=== PATIENT | female | born 1970 | race Caucasian/White ===

== ENCOUNTER → 2016-09-01 | Outpatient (CLI) | payer OTHER | END | disposition home or self-care (01) | LOC: LABWHC1 16:02 | PROVIDERS: ATTEND Nurse Practitioner | DX: F31.2 Bipolar disorder, current episode manic severe with psychotic features (principal); F31.5 Bipolar disorder, current episode depressed, severe, with psychotic features | CPT/HCPCS: 36415; 80183 ==

== ENCOUNTER 2016-11-06 23:55 | Observation (INO) | payer OTHER ==
[2016-11-07] MEDS ORDERED: NITROGLYCERIN OINT 1 INCH/GM PACKET TOPICAL STA (00:22)
[2016-11-07] MEDS ORDERED: FUROSEMIDE 10 MG/ML 4 ML VIAL IV STA (00:26)
--- NOTE | 2016-11-07 00:30 | ED ---
General Adult HPI - General Source: patient, RN notes reviewed Mode of arrival: wheelchair Limitations: no limitations <Enrique Landaverde - Last Filed: 11/07/16 00:27> <Joe Colon - Last Filed: 11/07/16 03:58> - General Chief complaint: Chest Pain Stated complaint: Chest Pain/Leg Swelling Time Seen by Provider: 11/07/16 00:05 - History of Present Illness Initial comments: This is a 46-year-old female who presents to emergency department complaining of chest pain or shortness of breath since noon. Patient states the pain radiates around to her back. Patient states the pain in her chest is a whirling sensation. Patient denies any diaphoresis. Patient denies any nausea. Patient states he has had an increase in edema to both legs. Patient denies any calf pain. Patient denies any lightheadedness or dizziness. Patient denies any patient denies numbness weakness. Patient denies any fever chills or cough. (Enrique Landaverde) - Related Data Home Medications Medication Instructions Recorded Confirmed Butalb/Acetaminophen/Caffeine 1 cap PO 11/07/16 [Esgic 50-325-40 Capsule] Furosemide [Lasix] 20 mg PO DAILY 11/07/16 11/07/16 Naproxen 500 mg PO 11/07/16 OXcarbazepine [Trileptal] 300 mg PO BID 11/07/16 11/07/16 Sertraline [Zoloft] 50 mg PO DAILY 11/07/16 11/07/16 risperiDONE [RisperDAL] 1 mg PO DAILY 11/07/16 11/07/16 traMADol HCL [Ultram] 11/07/16 Allergies Allergy/AdvReac Type Severity Reaction Status Date / Time aspirin Allergy Vomiting Verified 11/07/16 00:06 clarithromycin [From Biaxin] Allergy Vomiting Verified 11/07/16 00:06 Penicillins Allergy Dyspnea Verified 11/07/16 00:06 Review of Systems ROS Other: All systems not noted in ROS Statement are negative. <Enrique Landaverde - Last Filed: 11/07/16 00:27> ROS Other: All systems not noted in ROS Statement are negative. <Joe Colon - Last Filed: 11/07/16 03:58> ROS Statement: Those systems with pertinent positive or pertinent negative responses have been documented in the HPI. Past Medical History Past Medical History: Hypertension Additional Past Medical History / Comment(s): chronic back pain, leg edema, scoliosis History of Any Multi-Drug Resistant Organisms: None Reported Past Surgical History: Orthopedic Surgery Additional Past Surgical History / Comment(s): knee sx Past Psychological History: Anxiety Smoking Status: Current every day smoker Past Alcohol Use History: Rare Past Drug Use History: None Reported <Enrique Landaverde - Last Filed: 11/07/16 00:27> General Exam Limitations: no limitations <Enrique Landaverde - Last Filed: 11/07/16 00:27> <Joe Colon - Last Filed: 11/07/16 03:58> - General Exam Comments Initial Comments: GENERAL: Patient is well-developed and well-nourished. Patient is nontoxic and well- hydrated and is in mild distress. ENT: Neck is soft and supple. No significant lymphadenopathy is noted. Oropharynx is clear. Moist mucous membranes. Neck has full range of motion without eliciting any pain. EYES: The sclera were anicteric and conjunctiva were pink and moist. Extraocular movements were intact and pupils were equal round and reactive to light. Eyelids were unremarkable. PULMONARY: Unlabored respirations. Good breath sounds bilaterally. No audible rales rhonchi or wheezing was noted. CARDIOVASCULAR: There is a regular rate and rhythm without any murmurs gallops or rubs. ABDOMEN: Soft and nontender with normal bowel sounds. No palpable organomegaly was noted. There is no palpable pulsatile mass. SKIN: Skin is clear with no lesions or rashes and otherwise unremarkable. NEUROLOGIC: Patient is alert and oriented x3. Cranial nerves II through XII are grossly intact. Motor and sensory are also intact. Normal speech, volume and content. Symmetrical smile. MUSCULOSKELETAL: Normal extremities with adequate strength and full range of motion. 1+ edema bilaterally LYMPHATICS: No significant lymphadenopathy is noted PSYCHIATRIC: Normal psychiatric evaluation. Normal interpersonal interactions appears functionally intact in deals appropriately with others. No signs of depression. No signs of anxiety. (Enrique Landaverde) Medical Decision Making <Enrique Landaverde - Last Filed: 11/07/16 00:27> - Lab Data Result diagrams: 11/07/16 00:30 11/07/16 00:30 <Joe Colon - Last Filed: 11/07/16 03:58> - Medical Decision Making EKG shows a sinus bradycardia 55 bpm [place] interval is 148 QRS is 90 QT intervals 452 QTC is 432 patient's EKG shows no ST segment elevation or depression or T- wave abdomen is noted. Dr. Diaz taking over the care of this patient at 1 AM. (Enrique Landaverde) - Lab Data Lab Results 11/07/16 11/07/16 11/07/16 Range/Units 00:30 00:30 00:30 WBC 6.0 (3.8-10.6) k/uL RBC 4.27 (3.80-5.40) m/uL Hgb 12.8 (11.4-16.0) gm/dL Hct 38.6 (34.0-46.0) % MCV 90.5 (80.0-100.0) fL MCH 30.1 (25.0-35.0) pg MCHC 33.2 (31.0-37.0) g/dL RDW 13.5 (11.5-15.5) % Plt Count 202 (150-450) k/uL Neutrophils % 48 % Lymphocytes % 41 % Monocytes % 5 % Eosinophils % 3 % Basophils % 1 % Neutrophils # 2.9 (1.3-7.7) k/uL Lymphocytes # 2.5 (1.0-4.8) k/uL Monocytes # 0.3 (0-1.0) k/uL Eosinophils # 0.2 (0-0.7) k/uL Basophils # 0.1 (0-0.2) k/uL PT (9.0-12.0) sec INR (<1.1) APTT (22.0-30.0) sec Sodium 124 L (137-145) mmol/L Potassium 3.7 (3.5-5.1) mmol/L Chloride 91 L (98-107) mmol/L Carbon Dioxide 25 (22-30) mmol/L Anion Gap 8 mmol/L BUN 10 (7-17) mg/dL Creatinine 0.60 (0.52-1.04) mg/dL Est GFR (MDRD) Af Amer >60 (>60 ml/min/1.73 sqM) Est GFR (MDRD) Non-Af >60 (>60 ml/min/1.73 sqM) Glucose 103 H (74-99) mg/dL Calcium 8.6 (8.4-10.2) mg/dL Magnesium 1.7 (1.6-2.3) mg/dL Total Bilirubin 0.3 (0.2-1.3) mg/dL AST 22 (14-36) U/L ALT 32 (9-52) U/L Alkaline Phosphatase 77 (38-126) U/L Total Creatine Kinase 196 H (30-135) U/L CK-MB (CK-2) 5.4 H* (0.0-2.4) ng/mL CK-MB (CK-2) Rel Index 2.8 Troponin I <0.012 (0.000-0.034) ng/mL NT-Pro-B Natriuret Pep pg/mL Total Protein 6.0 L (6.3-8.2) g/dL Albumin 3.8 (3.5-5.0) g/dL 11/07/16 11/07/16 Range/Units 00:30 00:30 WBC (3.8-10.6) k/uL RBC (3.80-5.40) m/uL Hgb (11.4-16.0) gm/dL Hct (34.0-46.0) % MCV (80.0-100.0) fL MCH (25.0-35.0) pg MCHC (31.0-37.0) g/dL RDW (11.5-15.5) % Plt Count (150-450) k/uL Neutrophils % % Lymphocytes % % Monocytes % % Eosinophils % % Basophils % % Neutrophils # (1.3-7.7) k/uL Lymphocytes # (1.0-4.8) k/uL Monocytes # (0-1.0) k/uL Eosinophils # (0-0.7) k/uL Basophils # (0-0.2) k/uL PT 10.2 (9.0-12.0) sec INR 1.0 (<1.1) APTT 25.0 (22.0-30.0) sec Sodium (137-145) mmol/L Potassium (3.5-5.1) mmol/L Chloride (98-107) mmol/L Carbon Dioxide (22-30) mmol/L Anion Gap mmol/L BUN (7-17) mg/dL Creatinine (0.52-1.04) mg/dL Est GFR (MDRD) Af Amer (>60 ml/min/1.73 sqM) Est GFR (MDRD) Non-Af (>60 ml/min/1.73 sqM) Glucose (74-99) mg/dL Calcium (8.4-10.2) mg/dL Magnesium (1.6-2.3) mg/dL Total Bilirubin (0.2-1.3) mg/dL AST (14-36) U/L ALT (9-52) U/L Alkaline Phosphatase (38-126) U/L Total Creatine Kinase (30-135) U/L CK-MB (CK-2) (0.0-2.4) ng/mL CK-MB (CK-2) Rel Index Troponin I (0.000-0.034) ng/mL NT-Pro-B Natriuret Pep 292 pg/mL Total Protein (6.3-8.2) g/dL Albumin (3.5-5.0) g/dL Disposition <Enrique Landaverde - Last Filed: 11/07/16 00:27> <Joe Colon - Last Filed: 11/07/16 03:58> Clinical Impression: Hyponatremia Disposition: ADMITTED IP TO THIS HOSP Condition: Fair Referrals: Don Singh MD [Primary Care Provider] - 1-2 days
[2016-11-07 00:46] LABS: Basophils # (A) 0.1 k/uL (0-0.2); Basophils % (A) 1 %; CH 31.6; Eosinophils # (A) 0.2 k/uL (0-0.7); Eosinophils % (A) 3 %; HCT 38.6 % (34.0-46.0); HDW 2.22; HGB 12.8 gm/dL (11.4-16.0); Luc # (Auto) 0.14; Luc % (Auto) 2; Lymphocytes # (A) 2.5 k/uL (1.0-4.8); Lymphocytes % (A) 41 %; MCH 30.1 pg (25.0-35.0); MCHC 33.2 g/dL (31.0-37.0); MCV 90.5 fL (80.0-100.0); Mean Platelet Volume 8.4; Monocytes # (A) 0.3 k/uL (0-1.0); Monocytes % (A) 5 %; Neutrophils # (A) 2.9 k/uL (1.3-7.7); Neutrophils % (A) 48 %; RBC 4.27 m/uL (3.80-5.40); RDW 13.5 % (11.5-15.5); WBC (Perox) 6.13
[2016-11-07 00:55] LABS: ALT 32 U/L (9-52); AST 22 U/L (14-36); Alkaline Phosphatase 77 U/L (38-126); Anion Gap 8 mmol/L; Blood Urea Nitrogen 10 mg/dL (7-17); Calcium 8.6 mg/dL (8.4-10.2); Carbon Dioxide 25 mmol/L (22-30); Chloride 91 mmol/L (98-107); Glucose 103 mg/dL (74-99); Magnesium 1.7 mg/dL (1.6-2.3); Non-African American GFR(MDRD) >60 (>60 ml/min/1.73 sqM); Potassium 3.7 mmol/L (3.5-5.1); Sodium 124 mmol/L (137-145); Total Bilirubin 0.3 mg/dL (0.2-1.3)
[2016-11-07 01:14] LABS: Creatine Kinase 196 U/L (30-135)
[2016-11-07 01:19] LABS: Prothrombin Time 10.2 sec (9.0-12.0)
[2016-11-07 01:27] LABS: Troponin I <0.012 ng/mL (0.000-0.034)
[2016-11-07 01:34] LABS: Creatine Kinase MB 5.4 ng/mL (0.0-2.4)
--- NOTE | 2016-11-07 01:57 | XR ---
PROCEDURE: FILM CXR 2 VIEWS HISTORY: 46-year-old female with chest pain. COMPARISON: None TECHNIQUE: Frontal and lateral views of the chest were obtained. FINDINGS: Limited by technique. Cardiomediastinal silhouette is within normal limits. No evidence of focal consolidation, pleural effusion, or pneumothorax. Bones are unremarkable for age. IMPRESSION: Unremarkable two-view chest.
[2016-11-07] MEDS ORDERED: NALOXONE 0.4 MG/ML 1 ML VIAL IV PRN (03:37)
[2016-11-07] MEDS ORDERED: ACETAMINOPHEN TAB 325 MG TAB PO PRN (03:37)
[2016-11-07] MEDS ORDERED: traMADol 50 MG TAB PO PRN (03:47)
[2016-11-07] MEDS ORDERED: ACETAMINOPHEN PO SCH (04:00)
[2016-11-07] MEDS ORDERED: BUTALB PO SCH (04:00)
[2016-11-07] MEDS ORDERED: CAFFEINE PO SCH (04:00)
[2016-11-07] MEDS: SODIUM CHLORIDE 0.9% 1,000 ML IV SCH ×2 (05:00→14:11)
[2016-11-07] MEDS ORDERED: CAFFEINE PO PRN (05:09)
[2016-11-07] MEDS ORDERED: ACETAMINOPHEN PO PRN (05:09)
[2016-11-07] MEDS ORDERED: BUTALB PO PRN (05:09)
[2016-11-07 07:36] VITALS: BMI 23.6
[2016-11-07 07:58] VITALS: BP 113/56; PULSE 55; RESP 16; TEMP 97.7
[2016-11-07] MEDS ORDERED: OXcarbazepine 300 MG TAB PO SCH (09:00)
[2016-11-07] MEDS ORDERED: SERTRALINE 50 MG TAB PO SCH (09:00)
[2016-11-07] MEDS ORDERED: risperiDONE 1 MG TAB PO SCH (09:00)
[2016-11-07] MEDS ORDERED: FAMOTIDINE 20 MG TAB PO SCH (09:00)
[2016-11-07 12:20] LABS: Anion Gap 10 mmol/L; Blood Urea Nitrogen 9 mg/dL (7-17); Calcium 8.4 mg/dL (8.4-10.2); Carbon Dioxide 22 mmol/L (22-30); Chloride 93 mmol/L (98-107); Glucose 106 mg/dL (74-99); Non-African American GFR(MDRD) >60 (>60 ml/min/1.73 sqM); Potassium 3.8 mmol/L (3.5-5.1); Sodium 125 mmol/L (137-145)
--- NOTE | 2016-11-07 15:47 | HP ---
DATE OF ADMISSION: A 46-year-old female came into emergency department with complaints of nonspecific chest pain on and off, sharp in nature. Appears to be associated with anxiety and chest pain radiates around her back. Troponins are negative. EKGs negative. Patient's chest pain is nonpleuritic in nature. Patient attributes the chest pain to her leg pain. Whenever she has leg pain she gets anxious and she starts having this pain. Patient is also on naproxen. Although it is not related to food, it appears gastroesophageal reflux appears to be contributing to that pain. The patient does not have any family history of premature coronary artery disease. Patient was ruled out acute coronary syndrome, so will need a stress test regarding that. Patient was subsequently admitted here because of hyponatremia and patient is on Lasix and patient is taking Lasix for bilateral lower limb edema. That led hyponatremia. Unfortunately she got IV Lasix as well from ER. The patient was given IV fluids. I am expecting her hyponatremia to improve and if her hyponatremia improved patient will be discharged today. Patient will need an outpatient stress test and patient will be given Prilosec as well and patient will follow with Dr. Singh as outpatient. REVIEW OF SYSTEMS: CONSTITUTIONAL: No fever, no malaise, no fatigue. HEENT: No recent visual problems or hearing problems. Denied any sore throat. CARDIOVASCULAR: As described HPI. PULMONARY: No shortness of breath, no cough, no hemoptysis. GASTROINTESTINAL: No diarrhea, no nausea, no vomiting, no abdominal pain. Normoactive bowel sounds. NEUROLOGICAL: No headaches, no weakness, no numbness. HEMATOLOGICAL: Denies any bleeding or petechiae. GENITOURINARY: Denies any burning micturition, frequency, or urgency. MUSCULOSKELETAL/RHEUMATOLOGICAL: Denies any joint pain, swelling, or any muscle pain. ENDOCRINE: Denies any polyuria or polydipsia. The rest of the 14 point review of systems is negative. Patient denied any significant shortness of breath, orthopnea, PND, cough. PAST MEDICAL HISTORY: Significant for hypertension, depression, anxiety. The patient does smoke a half pack per day. Denied any alcohol abuse or any drug abuse. FAMILY HISTORY: As described in HPI. PHYSICAL EXAMINATION: Temperature 97.7, pulse 65, respiratory rate of 16, blood pressure is 130/56, saturating at 96% on room air. GENERAL: The patient is alert and oriented x3, not in any acute distress. Well developed, well nourished. HEENT: Pupils are round and equally reacting to light. EOMI. No scleral icterus. No conjunctival pallor. Normocephalic, atraumatic. No pharyngeal erythema. No thyromegaly. CARDIOVASCULAR: S1 and S2 present. No murmurs, rubs, or gallops. PULMONARY: Chest is clear to auscultation, no wheezing or crackles. ABDOMEN: Soft, nontender, nondistended, normoactive bowel sounds. No palpable organomegaly. MUSCULOSKELETAL: No joint swelling or deformity. EXTREMITIES: No cyanosis, clubbing, or pedal edema. NEUROLOGICAL: Gross neurological examination did not reveal any focal deficits. SKIN: No rashes. LABORATORY DATA: CBC, CMP are abnormal for low sodium 124. Chest x-ray did not show any pneumonic infiltrate. ASSESSMENT AND PLAN: 1. Chest pain, ruled out acute coronary syndrome, related to either anxiety disorder or gastroesophageal disease. Management as mentioned above. 2. Hypertension. 3. Hyponatremia related to her Lasix, which will be discontinued and patient will be asked to use compression socks for that. 4. Depression, anxiety disorder. Patient is already on antidepressants at this point of time. Further management as outpatient. The patient will be discharged after Doppler of the bilateral lower extremities if it is negative and if patient's sodium is greater than 130, patient will be discharged. Will discontinue Lasix upon discharge and patient will be followed by Dr. Singh in 3 to 7 days and patient will need outpatient stress test. Discharge diet is regular. Activity as tolerated. This dictation is both H&P and discharge summary.
--- NOTE | 2016-11-07 16:44 | US ---
EXAMINATION TYPE: US venous doppler duplex LE BI DATE OF EXAM: 11/07/2016 3:12 PM COMPARISON: NONE CLINICAL HISTORY: R/O DVT. Pain and edema bilateral legs SIDE PERFORMED: Bilateral TECHNIQUE: The lower extremity deep venous system is examined utilizing real time linear array sonog ravinder with graded compression, doppler sonography and color-flow sonography. VESSELS IMAGED: External Iliac Vein (EIV) Common Femoral Vein Deep Femoral Vein Greater Saphenous Vein * Femoral Vein Popliteal Vein Small Saphenous Vein * Proximal Calf Veins (* superficial vessels) Right Leg: No evidence of DVT Left Leg: No evidence of DVT No popliteal fossa lesion is seen. IMPRESSION: THIS EXAMINATION IS NEGATIVE FOR DVT WITHIN BOTH LEGS.
== END 2016-11-07 14:15 | disposition home or self-care (01) ==
LOC: EC 23:55 → 5MS5E 11-07 03:46 → INTOOBSV 11-07 03:46
PROVIDERS: ADMIT Hospitalist; ATTEND Hospitalist
DX: E87.1 Hypo-osmolality and hyponatremia (principal); R07.9 Chest pain, unspecified; I10 Essential (primary) hypertension; M41.9 Scoliosis, unspecified; F32.9 Major depressive disorder, single episode, unspecified; F41.9 Anxiety disorder, unspecified; K21.9 Gastro-esophageal reflux disease without esophagitis; F17.200 Nicotine dependence, unspecified, uncomplicated; G89.29 Other chronic pain; M54.9 Dorsalgia, unspecified; Z88.6 Allergy status to analgesic agent; Z88.0 Allergy status to penicillin; Z88.8 Allergy status to other drugs, medicaments and biological substances; Z79.899 Other long term (current) drug therapy; F45.42 Pain disorder with related psychological factors
CPT/HCPCS: 96374; 99285; 36415; 93005; 83880; 80053; 80048; 82550; 82553; 83735; 84484; 85025; 85610; 85730; 71020; 93970; G0378; J1940

== ENCOUNTER → 2017-01-01 | Outpatient (CLI) | payer OTHER | END | disposition home or self-care (01) | LOC: LABWHC1 15:42 | PROVIDERS: ATTEND Internal Medicine | DX: E87.1 Hypo-osmolality and hyponatremia (principal) | CPT/HCPCS: 83935; 84300 ==

== ENCOUNTER 2017-01-11 19:22 | Emergency (ER) | payer OTHER ==
[2017-01-11] MEDS ORDERED: PROPARACAINE 0.5% OPHTH DROPS 15 ML BTL LEFT EYE STA (20:50)
--- NOTE | 2017-01-11 21:14 | ED ---
Eye Problem HPI - General Chief complaint: Eye Problems Stated complaint: Eye Problem Time Seen by Provider: 01/11/17 20:29 Source: patient Mode of arrival: ambulatory Limitations: no limitations - History of Present Illness Initial comments: 38-year-old female patient presented to emergency department today for complaints of left eye pain, drainage, and swelling. Patient states that about one week ago she began to have some eye discomfort and drainage from the eye. Patient states that over the next few days it became more swollen. She did see her primary care physician 4 days ago was given a prescription for sulfacetamide for conjunctivitis and azithromycin for sinusitis. Patient states that she has been taking both antibiotics as directed and her symptoms seem to be worsening. Patient states that a couple days after her doctor's appointment she did develop some red bumps on her forehead, she states that they were itchy, states that they have turned into scabbed lesions. She states this all has developed over her lower eyelid as well. Patient states she does have pain with eye movement. States she does have headache with this. She reports blurred vision. She denies any fever, chills, ear pain, dizziness, weakness, or any other physical concerns. - Related Data Home Medications Medication Instructions Recorded Confirmed Butalb/Acetaminophen/Caffeine 1 cap PO Q6H PRN 11/07/16 01/11/17 [Esgic 50-325-40 Capsule] LORazepam [Ativan] 0.5 mg PO DAILY PRN 11/07/16 01/11/17 Naproxen 500 mg PO BID PRN 11/07/16 01/11/17 Sertraline [Zoloft] 50 mg PO DAILY 11/07/16 01/11/17 risperiDONE [RisperDAL] 1 mg PO HS 11/07/16 01/11/17 traMADol HCL [Ultram] 50 mg PO TID PRN 11/07/16 01/11/17 Previous Rx's Medication Instructions Recorded valACYclovir [Valtrex] 500 mg PO BID #20 tab 01/11/17 Allergies Allergy/AdvReac Type Severity Reaction Status Date / Time aspirin Allergy Vomiting Verified 01/11/17 20:42 clarithromycin [From Biaxin] Allergy Vomiting Verified 01/11/17 20:42 omeprazole Allergy Unknown Verified 01/11/17 20:42 Penicillins Allergy Dyspnea Verified 01/11/17 20:42 Review of Systems ROS Statement: Those systems with pertinent positive or pertinent negative responses have been documented in the HPI. ROS Other: All systems not noted in ROS Statement are negative. Past Medical History Past Medical History: Hypertension Additional Past Medical History / Comment(s): chronic back pain, leg edema, scoliosis, anxiety depression History of Any Multi-Drug Resistant Organisms: None Reported Past Surgical History: Orthopedic Surgery Additional Past Surgical History / Comment(s): knee sx Past Anesthesia/Blood Transfusion Reactions: No Reported Reaction Past Psychological History: Anxiety, Depression Smoking Status: Current every day smoker Past Alcohol Use History: None Reported Past Drug Use History: None Reported General Exam Limitations: no limitations General appearance: alert, in no apparent distress Eye exam: Present: normal appearance, PERRL, EOMI, periorbital swelling ( Periorbital swelling extending down over the left maxillary area. Left lower lid is edematous, does exhibit two small scabbed lesions near the inner canthus. Patient also exhibits 3 scabbed lesions over the medial forehead. There is green drainage noted from the left eye. ), other (Eye was prepped with proparacaine. Fluorescein stain with Wood's lamp examination to the left eye shows no evidence of corneal abrasion, dendritic lesions, or laceration.). Absent: scleral icterus, conjunctival injection, periorbital tenderness Pupils: Present: normal accommodation ENT exam: Present: normal exam, normal oropharynx, mucous membranes moist, TM's normal bilaterally Neck exam: Present: normal inspection. Absent: tenderness, meningismus, lymphadenopathy Respiratory exam: Present: normal lung sounds bilaterally. Absent: respiratory distress, wheezes, rales, rhonchi, stridor Cardiovascular Exam: Present: regular rate, normal rhythm, normal heart sounds. Absent: systolic murmur, diastolic murmur, rubs, gallop, clicks Neurological exam: Present: alert, oriented X3, CN II-XII intact Psychiatric exam: Present: normal affect, normal mood Skin exam: Present: warm, dry, intact, normal color. Absent: rash Course Vital Signs 01/11/17 01/11/17 19:52 21:25 Temperature 98.6 F 97.9 F Pulse Rate 65 64 Respiratory 17 16 Rate Blood Pressure 133/72 143/79 O2 Sat by Pulse 99 98 Oximetry Medical Decision Making - Medical Decision Making 38-year-old male patient presented for evaluation of left eye discomfort and swelling. Patient has been instilling sulfacetamide drops without relief of symptoms. Fluorescein stain with Wood's lamp examination was performed and showed no abrasion, laceration, or dendritic lesions. My attending Dr. Tee was in to evaluate the eye as well and is concerned for herpes simplex infection. He did speak to Dr. Gómez the community health nurse supervisor who agreed to see patient in the office tomorrow. He recommended to start patient on Valtrex. Patient will be given a prescription for this as well as follow up information with Dr. Gómez. She was also instructed to follow up with her primary care physician for recheck in 1-2 days. Instructed to return here immediately for any new, worsening, or concerning symptoms. Patient verbalizes understanding and agrees with this plan. Disposition Clinical Impression: Ocular herpes simplex Disposition: HOME SELF-CARE Condition: Good Instructions: Eye Pain (ED) Additional Instructions: Continue azithromycin for sinusitis. Call Dr. Gómez's office tomorrow for an appointment. Complete the Valtrex prescription in full. Return to the emergency department immediately for any new, worsening, or concerning symptoms. Prescriptions: valACYclovir [Valtrex] 500 mg PO BID #20 tab Referrals: Don Singh MD [Primary Care Provider] - 1-2 days Michele Gómez MD [STAFF PHYSICIAN] - 1-2 days Time of Disposition: 21:18
[2017-01-11 21:27] VITALS: BP 143/79; PULSE 64; RESP 16; TEMP 97.9
== END 2017-01-11 21:25 | disposition home or self-care (01) ==
LOC: EC 19:22
DX: B00.50 Herpesviral ocular disease, unspecified (principal); L98.9 Disorder of the skin and subcutaneous tissue, unspecified; H53.8 Other visual disturbances; R51 Headache; F32.9 Major depressive disorder, single episode, unspecified; F41.9 Anxiety disorder, unspecified; F17.200 Nicotine dependence, unspecified, uncomplicated; Z79.899 Other long term (current) drug therapy; Z88.0 Allergy status to penicillin; Z88.1 Allergy status to other antibiotic agents; Z88.6 Allergy status to analgesic agent; Z88.8 Allergy status to other drugs, medicaments and biological substances
CPT/HCPCS: 99283

== ENCOUNTER → 2017-03-01 | Outpatient (CLI) | payer OTHER ==
--- NOTE | 2017-03-01 21:11 | MR ---
EXAMINATION TYPE: MR brain wo DATE OF EXAM: 03/01/2017 COMPARISON: 08/28/2011 HISTORY: Neck pain, migraine T1-weighted sagittal, T2, FLAIR, and diffusion axial, and T2 coronal coronal views of the brain are s ubmitted. There is no evidence of acute ischemia. The ventricles, basal cisterns, and sulci overlying the conv exities are consistent with the patient's age. There is no mass effect. Craniocervical junction maintained. Sella turcica has a normal appearance. No cerebellopontine angle mass. Changes of chronic sinusitis noted. Abnormal signal involving the yuridia stable suggestive of previous ischemia or demyelination. There is a cyst within the posterior nasopharynx. WHITE MATTER: There is diffuse confluent and numerous bilateral focal areas of abnormal signal throughout the white matter totaling greater than 50. Sagittal imaging suggestive evidence of callosal lesion. IMPRESSION: 1. Progression of diffuse and extensive white matter changes. Differential diagnosis would include de myelinating disease such as MS. Other etiologies including remote microvascular ischemia, vasculitis, sarcoidosis, Lyme's disease, hypertension or migraine headaches in the differential diagnosis. EXAMINATION TYPE: MR cervical spine wo DATE OF EXAM: 03/01/2017 COMPARISON: NONE HISTORY: Neck pain, migraine TECHNIQUE: T1 sagittal and coronal, T2 sagittal, and gradient echo axial views of the cervical spine are submitted. FINDINGS: The cranial cervical junction is preserved. There is no abnormal signal seen within the sp inal cord or paraspinal soft tissues. At C2-3 there is mild uncovertebral joint hypertrophy on the left. No disc herniation or canal stenos is. No foraminal encroachment greater At C3-4 there is bilateral uncovertebral joint hypertrophy greater on the left with left-sided facet arthropathy and mild left foraminal encroachment. No disc herniation or canal stenosis. At C4-5 there is bilateral facet arthropathy and mild uncovertebral joint hypertrophy with mild bilat eral foraminal encroachment. No disc herniation or canal stenosis. At C5-6 there is mild facet arthropathy. No foraminal encroachment, disc herniation or canal stenosis . Minimal uncovertebral joint hypertrophy bilaterally. At C6-7 there is focal broad-based central disc herniation slightly greater paracentrally the right. Abuts the anterior margin the spinal cord. Mild bilateral foraminal encroachment. At C7-T1 there is no disc herniation or canal stenosis. No foraminal encroachment. Multiple thyroid nodules are incidentally noted. IMPRESSION: 1. Multilevel cervical spondylosis with multilevel foraminal encroachment as discussed above. 2. Broad-based central disc herniation C6-C7 which abuts the anterior margin the spinal cord slightly greater paracentrally the right. 3. Multiple thyroid nodules.
--- NOTE | 2017-03-01 21:15 | MR ---
EXAMINATION TYPE: MR lumbar spine wo con DATE OF EXAM: 03/01/2017 COMPARISON: NONE HISTORY: low back pain TECHNIQUE: T1 and T2 axial and sagittal images of the lumbar spine are submitted. FINDINGS: There is no abnormal signal seen within the visualized spinal cord or paraspinal soft tissu es. Degenerative disc disease L2-3, L3-4, and L4-L5. At L1-2 there is no disc herniation, canal stenosis, or foraminal encroachment. At L2-3 there is mild degenerative disc disease. There is mild facet arthropathy with no foraminal en croachment or canal stenosis. No disc herniation. At L3-4 there is broad-based central disc protrusion with mild effacement of thecal sac. Facet arthro evangelist and ligament flavum hypertrophy contribute to borderline canal stenosis. At L4-5 there is annular tear with focal small central disc herniation resulting in moderate compress ion of thecal sac. Facet arthropathy and ligamentum flavum hypertrophy contribute to mild canal steno sis. Neural foramina remain patent. At L5-S1 there is no disc herniation or canal stenosis. No foraminal encroachment. There is facet art hropathy. IMPRESSION: 1. Annular tear and broad-based disc herniations L3-L4 and L4-L5. Hypertrophic change of the facets a nd ligamentum flavum at these levels contribute to borderline to mild canal stenosis. 2 multilevel fa cet arthropathy and degenerative disc disease.
== END | disposition home or self-care (01) ==
LOC: RADMRIMAIN 19:25
PROVIDERS: ATTEND Physician Assistant
DX: M48.061 Spinal stenosis, lumbar region without neurogenic claudication (principal); M51.26 Other intervertebral disc displacement, lumbar region; M50.223 Other cervical disc displacement at C6-C7 level; M51.36 Other intervertebral disc degeneration, lumbar region; M47.812 Spondylosis without myelopathy or radiculopathy, cervical region; M46.96 Unspecified inflammatory spondylopathy, lumbar region; M24.28 Disorder of ligament, vertebrae; R90.89 Other abnormal findings on diagnostic imaging of central nervous system; R51 Headache; R42 Dizziness and giddiness; M79.1 Myalgia; F33.9 Major depressive disorder, recurrent, unspecified; M25.561 Pain in right knee; M13.862 Other specified arthritis, left knee; G56.02 Carpal tunnel syndrome, left upper limb; Z72.0 Tobacco use
CPT/HCPCS: 70551; 72141; 72148

== ENCOUNTER → 2017-06-14 | Outpatient (CLI) | payer OTHER ==
--- NOTE | 2017-06-14 21:44 | US ---
EXAMINATION TYPE: US carotid duplex BILAT DATE OF EXAM: 06/14/2017 COMPARISON: NONE CLINICAL HISTORY: I63.9 stroke, R42 dizziness. Dizziness, stroke EXAM MEASUREMENTS: RIGHT: Peak Systolic Velocity (PSV) cm/sec ----- Right CCA: 91.7 ----- Right ICA: 130.1 ----- Right ECA: 116.4 ICA/CCA ratio: 1.4 RIGHT: End Diastole cm/sec ----- Right CCA: 34.9 ----- Right ICA: 50.3 ----- Right ECA: 16.0 LEFT: Peak Systolic Velocity (PSV) cm/sec ----- Left CCA: 107.7 ----- Left ICA: 117.8 ----- Left ECA: 99.5 ICA/CCA ratio: 1.1 LEFT: End Diastole cm/sec ----- Left CCA: 38.2 ----- Left ICA: 44.5 ----- Left ECA: 19.2 VERTEBRALS (direction of flow): Right Vertebral: Antegrade Left Vertebral: Antegrade Rhythm: Normal Elevated right internal carotid artery velocity in the range of 50-69%. The ratio suggests this may b e slightly lower. Right thyroid: 1.5 x 0.8 x 1.2cm nodule IMPRESSION: 1. Elevation of the right internal carotid artery velocity compatible with a moderate 50-69% stenosis . 2. Incidental note is made of a right thyroid lobe nodule. Consider ultrasound of the thyroid for add itional evaluation. Criteria for Assigning % of Stenosis / Diameter reduction (Estimation based on the indirect measurements of the internal carotid artery velocities (ICA PSV). 1. Normal (no stenosis)=ICA PSV < 125 cm/s: ratio < 2.0: ICA EDV<40 cm/s. 2. Less than 50% stenosis=ICA PSV < 125 cm/s: ratio < 2.0: ICA EDV<40 cm/s. 3. 50 to 69% stenosis=ICA PSV of 125 to 230 cm/s: ratio 2.0 ? 4.0: ICA EDV 40-100 cm/s. 4. Greater than 70% stenosis to near occlusion= ICA PSV > 230 cm/s: ratio > 4.0: ICA EDV > 100 cm/s. 5. Near occlusion= ICA PSV velocities may be low or undetectable: variable ratio and ICA EDV. 6. Total occlusion=unable to detect flow.
== END | disposition home or self-care (01) ==
LOC: RADUSWWP 14:50
PROVIDERS: ATTEND Psychiatry & Neurology Neurology
DX: R93.1 Abnormal findings on diagnostic imaging of heart and coronary circulation (principal); R42 Dizziness and giddiness
CPT/HCPCS: 93880

== ENCOUNTER → 2017-07-10 | Outpatient (CLI) | payer OTHER ==
[2017-07-10 10:42] LABS: Cholesterol 148 mg/dL (<200); HDL Cholesterol 54 mg/dL (40-60); LDL Cholesterol,Calculated 74 mg/dL (0-99); Triglycerides 99 mg/dL (<150)
--- NOTE | 2017-07-10 10:52 | US ---
EXAMINATION TYPE: US thyroid st tissue head/neck DATE OF EXAM: 07/10/2017 COMPARISON: NONE CLINICAL HISTORY: 46-year-old female E04.1 Thyroid Nodule. Right side nodule visualized on carotid ul trasound TECHNIQUE: Multiple sonographic images of the thyroid gland are obtained. FINDINGS: GLAND SIZE: Right Lobe: 5.2 x 1.8 x 1.8 cm Overall Parenchyma: homogenous Left Lobe: 5.2 x 1.3 x 1.9 cm Overall Parenchyma: homogeneous Isthmus Thickness: 0.3 cm NODULES RIGHT: # of nodules measured on right: 2 1. 1.9 X 0.7 x 1.2 cm hypoechoic solid nodule at the lower pole with well-defined margins; . This nodule is wider than tall and shows intranodular vascularity. Prior size: No previous 2. 6 x 5 x 5 mm hypoechoic mixed nodule at the lower pole with well-defined margins; . This nodule i s wider than tall and shows intranodular vascularity. Prior size: No previous LEFT: # of nodules measured on left: 2 1. 0.8 X 0.5 x 0.8 cm hypoechoic solid nodule at the mid pole with well-defined margins; . This no dule is wider than tall and shows intranodular vascularity. Prior size: No previous 2. 0.9 X 0.4 x 0.8 cm hypoechoic solid nodule at the upper pole with well-defined margins; . This n odule is wider than tall and shows intranodular vascularity. Prior size: No previous ISTHMUS: # of nodules measured in the isthmus: 0 Bilateral neck scanned, no evidence of lymphadenopathy. IMPRESSION: 1. Mild thyromegaly. 2. Two nodules in each lobe. Dominant nodule is on the right measuring 1.9 cm. Other nodules measure 9 mm or smaller. FNA can be considered of the dominant nodule.
== END | disposition home or self-care (01) ==
LOC: RADUSWWP 09:32
PROVIDERS: ATTEND Psychiatry & Neurology Neurology
DX: E01.0 Iodine-deficiency related diffuse (endemic) goiter (principal); E04.2 Nontoxic multinodular goiter; I63.9 Cerebral infarction, unspecified
CPT/HCPCS: 36415; 76536; 80061; 83090

== ENCOUNTER → 2017-08-27 | Outpatient (CLI) | payer OTHER ==
--- NOTE | 2017-08-27 14:53 | US ---
EXAMINATION TYPE: US thyroid st tissue head/neck DATE OF EXAM: 08/27/2017 COMPARISON: 07/10/2017 CLINICAL HISTORY: R22.0 Localized swelling, mass and lump, head. f/u exam GLAND SIZE: Right Lobe: 5.0 x 1.7 x 2.1 cm Overall Parenchyma: homogenous Left Lobe: 5.5 x 2.1 x 1.5 cm Overall Parenchyma: homogeneous Isthmus Thickness: 0.4 cm NODULES RIGHT: # of nodules measured on right: 3 1. 1.4 X 1.3 x 0.7 cm hypoechoic solid nodule at the mid pole with well-defined margins. This nodu le is wider than tall and shows intranodular vascularity. Prior size: 1.9 x 1.2 x 0.7 cm - previous tech combined #1 and #2 lesion measurements together 2. 0.7 X 0.5 x 0.4 cm hypoechoic solid nodule at the mid pole with well-defined margins. This nodul e is wider than tall and shows intranodular vascularity. Prior size: as stated under nodule #1 3. 0.7 X 0.6 x 0.6 cm hypoechoic solid nodule at the lower pole with well-defined margins. This nod ule is wider than tall and shows intranodular vascularity. Prior size: 0.6 x 0.5 x 0.6 cm LEFT: # of nodules measured on left: 2 1. 0.9 X 1.0 x 0.4 cm hypoechoic solid nodule at the mid pole with well-defined margins. This nodu le is wider than tall and shows intranodular vascularity. Prior size: 0.8 x 0.8 x 0.5 cm 2. 1.0 X 0.7 x 0.4 cm hypoechoic solid nodule at the mid pole with well-defined margins. This nodul e is wider than tall and shows intranodular vascularity. Prior size: 0.9 x 0.8 x 0.4 cm ISTHMUS: # of nodules measured in the isthmus: 0 Bilateral neck scanned, no evidence of lymphadenopathy. IMPRESSION: Nonspecific thyroid nodularity as outlined above.
== END | disposition home or self-care (01) ==
LOC: RADUSWWP 13:37
PROVIDERS: ATTEND Internal Medicine
DX: E04.1 Nontoxic single thyroid nodule (principal); Z88.0 Allergy status to penicillin; Z88.6 Allergy status to analgesic agent; Z88.8 Allergy status to other drugs, medicaments and biological substances
CPT/HCPCS: 76536

== ENCOUNTER → 2017-11-02 | Outpatient (CLI) | payer OTHER ==
--- NOTE | 2017-11-02 18:21 | ECHOF ---
Referral Reason:R60.0 Localized edema, I10 Hypertension MEASUREMENTS -------- HEIGHT: 137.2 cm WEIGHT: 67.1 kg BP: IVSd: 0.8 cm (0.6 - 1.1) LVIDd: 4.3 cm (3.9 - 5.3) LVPWd: 0.9 cm (0.6 - 1.1) IVSs: 1.1 cm LVIDs: 3.0 cm LVPWs: 1.3 cm LA Diam: 2.4 cm (2.7 - 3.8) Ao Diam: 2.4 cm (2.0 - 3.7) AV Cusp: 1.6 cm (1.5 - 2.6) LA Diam: 3.0 cm (2.7 - 3.8) MV EXCURSION: 12.408 mm (> 18.000) MV EF SLOPE: 60 mm/s (70 - 150) EPSS: 0.4 cm MV E Merrick: 0.77 m/s MV DecT: 186 ms MV A Merrick: 0.71 m/s MV E/A Ratio: 1.08 RAP: 5.00 mmHg RVSP: 12.43 mmHg FINDINGS -------- Sinus rhythm. This was a technically adequate study. LV size, wall thickness and systolic function are normal, with an EF greater than 55%. The left leonardo tricular size is normal. The right ventricle is normal in size. The left atrial size is normal. The right atrial size is normal. The aortic valve is trileaflet, and appears structurally normal. No aortic stenosis or regurgitation. Mild mitral annular calcification present. Mild mitral regurgitation is present. Mild tricuspid regurgitation present. There is no evidence of pulmonary hypertension. The right v entricular systolic pressure, as measured by Doppler, is 12.43mmHg. There is no pulmonic regurgitation present. The aortic root size is normal. There is no pericardial effusion. CONCLUSIONS -------- 1. LV size, wall thickness and systolic function are normal, with an EF greater than 55%. 2. The left ventricular size is normal. 3. The right ventricle is normal in size. 4. The left atrial size is normal. 5. The right atrial size is normal. 6. The aortic valve is trileaflet, and appears structurally normal. No aortic stenosis or regurgitati on. 7. Mild mitral annular calcification present. 8. Mild mitral regurgitation is present. 9. Mild tricuspid regurgitation present. 10. There is no evidence of pulmonary hypertension. 11. The right ventricular systolic pressure, as measured by Doppler, is 12.43mmHg. 12. There is no pulmonic regurgitation present. 13. The aortic root size is normal. 14. There is no pericardial effusion. BAND MACHINE OPERATOR: Halley Ellison RDCS
== END | disposition home or self-care (01) ==
LOC: RADECHMAIN 11:33
PROVIDERS: ATTEND Internal Medicine
DX: I08.1 Rheumatic disorders of both mitral and tricuspid valves (principal); I10 Essential (primary) hypertension; Z88.0 Allergy status to penicillin; Z88.6 Allergy status to analgesic agent
CPT/HCPCS: 93306

== ENCOUNTER → 2019-05-05 | Outpatient (CLI) | payer OTHER ==
--- NOTE | 2019-05-05 10:24 | MM ---
Reason for exam: screening (asymptomatic). Baseline mammogram. History: Patient is postmenopausal and is nulliparous. Physical Findings: Nurse did not find any significant physical abnormalities on exam. MG 3D Screening Mammo W/Cad Bilateral CC and MLO view(s) were taken. The breast tissue is heterogeneously dense. This may lower the sensitivity of mammography. No suspicious abnormality. These results were verbally communicated with the patient and result sheet given to the patient on 05/05/19. ASSESSMENT: Negative, BI-RAD 1 RECOMMENDATION: Routine screening mammogram of both breasts in 1 year.
== END | disposition home or self-care (01) ==
LOC: RADMAMWWP 07:06
PROVIDERS: ATTEND Internal Medicine
DX: Z12.31 Encounter for screening mammogram for malignant neoplasm of breast (principal)
CPT/HCPCS: 77063; 77067

== ENCOUNTER 2019-06-06 08:49 | Day surgery (SDC) | payer OTHER ==
[2019-06-04 11:07] VITALS: BMI 25.4
[~2019-06-06 08:49] MED LIST: LACTATED RINGERS 1,000 ML IV SCH; LIDOCAINE 1% (10MG/ML) FOR IV START INTRADERMA PRN
[2019-06-06 09:04] VITALS: TEMP 97.3
[2019-06-06] MEDS ORDERED: MIDAZOLAM 2 MG/2 ML VIAL ONE (09:17)
[2019-06-06] MEDS ORDERED: PROPOFOL 10 MG/ML 20 ML VIAL IV ONE (09:17)
[2019-06-06] MEDS ORDERED: fentaNYL (PF) 50 MCG/ML 2 ML AMP ONE (09:17)
--- NOTE | 2019-06-06 09:23 | P.GSHP ---
History of Present Illness H&P Date: 06/06/19 Chief Complaint: Colon cancer screening Patient here today for colonoscopy. She has not had one previously. No family history of colon cancer. No bowel related complaints. In the distant past she had rectal bleeding while on blood thinners. Past Medical History Past Medical History: CVA/TIA, Hyperlipidemia, Hypertension, Memory Impairment Additional Past Medical History / Comment(s): chronic back pain, leg edema, scoliosis, CVA 2018 [employer] History of Any Multi-Drug Resistant Organisms: None Reported Past Surgical History: Cholecystectomy, Orthopedic Surgery Additional Past Surgical History / Comment(s): LT knee sx, Past Anesthesia/Blood Transfusion Reactions: No Reported Reaction Past Psychological History: Anxiety, Depression Smoking Status: Current every day smoker Past Alcohol Use History: Rare Additional Past Alcohol Use History / Comment(s): SMOKES 1 -2 PPD- SINCE AGE 8 Past Drug Use History: Marijuana Additional Drug Use History / Comment(s): USES MARIJUANA DAILY-INFORMED TO REFRAIN FROM USE FOR AT LEAST 24 HOURS PRIOR TO PROCEDURE - Past Family History Mother Family Medical History: No Reported History Medications and Allergies Home Medications Medication Instructions Recorded Confirmed Type Butalb/Acetaminophen/Caffeine 1 cap PO Q6H PRN 11/07/16 06/04/19 History [Esgic 50-325-40 Capsule] LORazepam [Ativan] 0.5 mg PO HS PRN 11/07/16 06/04/19 History Naproxen 500 mg PO BID PRN 11/07/16 06/04/19 History risperiDONE [RisperDAL] 2 mg PO HS 11/07/16 06/04/19 History Atorvastatin [Lipitor] 20 mg PO DAILY 06/04/19 06/04/19 History Khddxitkmzryhz-PG-Gjfhfewxdi 1 tab PO DAILY 06/04/19 06/04/19 History [Folbic] HYDROcodone/APAP 7.5-325MG [[place] 1 tab PO BID 06/04/19 06/04/19 History 7.5-325] Montelukast [Singulair] 10 mg PO DAILY 06/04/19 06/04/19 History Multivit/Folic Acid/Vit K1 1 each PO DAILY 06/04/19 06/04/19 History [One-A-Day Women's 50 Plus Tab] Propranolol HCl [Propranolol HCl 60 mg PO DAILY 06/04/19 06/04/19 History ER] Sertraline [Zoloft] 100 mg PO DAILY 06/04/19 06/04/19 History Venlafaxine HCl [Effexor XR] 37.5 mg PO DAILY 06/04/19 06/04/19 History risperiDONE 1 mg PO QAM 06/04/19 06/04/19 History Allergies Allergy/AdvReac Type Severity Reaction Status Date / Time aspirin Allergy Vomiting Verified 06/04/19 10:57 clarithromycin [From Biaxin] Allergy Vomiting Verified 06/04/19 10:57 omeprazole Allergy Nausea Verified 06/04/19 10:57 Penicillins Allergy Dyspnea Verified 06/04/19 10:57 Surgical - Exam Vital Signs Temp Pulse Resp BP Pulse Ox 97.3 F L 75 18 122/71 97 06/06/19 09:00 06/06/19 09:00 06/06/19 09:00 06/06/19 09:00 06/06/19 09:00 Physical exam: General: Well-developed, well-nourished HEENT: Normocephalic, sclerae nonicteric Abdomen: Nontender, nondistended Extremities: No edema Neuro: Alert and oriented Assessment and Plan (1) Colon cancer screening Narrative/Plan: Will proceed with colonoscopy Current Visit: Yes Status: Acute Code(s): Z12.11 - ENCOUNTER FOR SCREENING FOR MALIGNANT NEOPLASM OF COLON SNOMED Code(s): 504432206
[2019-06-06 09:42] VITALS: RESP 16
--- NOTE | 2019-06-06 09:44 | P.PCN ---
Date of Procedure: 06/06/19 Procedure(s) Performed: PREOPERATIVE DIAGNOSIS: Colon cancer screening POSTOPERATIVE DIAGNOSIS: Small hemorrhoids PROCEDURE: Colonoscopy ANESTHESIA: MAC SURGEON: Sujit Tello M.D. SPECIMENS: None ENDOSCOPIC PROCEDURE: The patient was placed on the endoscopy table in the left decubitus position. The Olympus colonoscope was inserted into the anus and passed under direct visualization to the base of the cecum. The appendiceal orifice was visualized. From that point the scope was slowly withdrawn in specting all surfaces carefully. There were no neoplastic inflammatory or polypoid lesions throughout the cecum, ascending, transverse, descending, sigmoid and rectum. There was no visible diverticulosis noted. Digital rectal examination was normal. The patient was taken to the recovery room in stable condition per anesthesia guidelines. RECOMMENDATIONS: Increase fiber. Follow-up colonoscopy 10 years.
[2019-06-06 09:55] VITALS: BP 132/84; PULSE 82
== END 2019-06-06 10:22 | disposition home or self-care (01) ==
LOC: ORWHC2ENDO 08:49
PROVIDERS: ATTEND Surgery
DX: Z12.11 Encounter for screening for malignant neoplasm of colon (principal); K64.9 Unspecified hemorrhoids; I10 Essential (primary) hypertension; E78.5 Hyperlipidemia, unspecified; I69.311 Memory deficit following cerebral infarction; G89.29 Other chronic pain; M54.9 Dorsalgia, unspecified; R60.0 Localized edema; M41.9 Scoliosis, unspecified; Z90.49 Acquired absence of other specified parts of digestive tract; F41.9 Anxiety disorder, unspecified; F32.9 Major depressive disorder, single episode, unspecified; F17.210 Nicotine dependence, cigarettes, uncomplicated; Z79.891 Long term (current) use of opiate analgesic; Z79.899 Other long term (current) drug therapy; Z88.1 Allergy status to other antibiotic agents; Z88.0 Allergy status to penicillin; Z88.8 Allergy status to other drugs, medicaments and biological substances; Z88.6 Allergy status to analgesic agent
CPT/HCPCS: G0121; J2250; J3010; J2704; 45378

== ENCOUNTER 2020-08-20 13:39 | Emergency (ER) | payer OTHER ==
[2020-08-20 14:21] VITALS: BP 142/71; PULSE 53; RESP 16; TEMP 98
--- NOTE | 2020-08-20 15:03 | ED ---
Recheck HPI - General Chief Complaint: Recheck/Abnormal Lab/Rx Stated Complaint: +COVID,Sent by pcp for BAM Time Seen by Provider: 08/20/20 14:51 Source: patient Limitations: no limitations - History of Present Illness Initial Comments: Patient is a 49-year-old female presenting to the emergency department after being sent in by PCP for possible covid antibody treatment. Patient tested positive for Covid today, along with her , and PCP sent in. She is currently asymptomatic, she'll he got tested secondary to her being exposed to at work. She denies history of asthma or COPD, she does have MS. She has no fevers or chills, no chest pain or short of breath, no cough. She has no further complaints. Upon arrival to the ER her vitals are stable. - Related Data Home Medications Medication Instructions Recorded Confirmed Butalb/Acetaminophen/Caffeine 1 cap PO Q6H PRN 11/07/16 06/04/19 [Esgic 50-325-40 Capsule] LORazepam [Ativan] 0.5 mg PO HS PRN 11/07/16 06/04/19 Naproxen 500 mg PO BID PRN 11/07/16 06/04/19 risperiDONE [RisperDAL] 2 mg PO HS 11/07/16 06/04/19 Atorvastatin [Lipitor] 20 mg PO DAILY 06/04/19 06/04/19 Frwjvcdjloetbu-HO-Xeoonarnmv 1 tab PO DAILY 06/04/19 06/04/19 [Folbic] HYDROcodone/APAP 7.5-325MG [[place] 1 tab PO BID 06/04/19 06/04/19 7.5-325] Montelukast [Singulair] 10 mg PO DAILY 06/04/19 06/04/19 Multivit/Folic Acid/Vit K1 1 each PO DAILY 06/04/19 06/04/19 [One-A-Day Women's 50 Plus Tab] Propranolol HCl [Propranolol HCl 60 mg PO DAILY 06/04/19 06/04/19 ER] Sertraline [Zoloft] 100 mg PO DAILY 06/04/19 06/04/19 Venlafaxine HCl [Effexor XR] 37.5 mg PO DAILY 06/04/19 06/04/19 risperiDONE 1 mg PO QAM 06/04/19 06/04/19 Allergies Allergy/AdvReac Type Severity Reaction Status Date / Time aspirin Allergy Vomiting Verified 08/20/20 14:16 clarithromycin [From Biaxin] Allergy Vomiting Verified 08/20/20 14:16 omeprazole Allergy Nausea Verified 08/20/20 14:16 Penicillins Allergy Dyspnea Verified 08/20/20 14:16 Review of Systems ROS Statement: Those systems with pertinent positive or pertinent negative responses have been documented in the HPI. ROS Other: All systems not noted in ROS Statement are negative. Past Medical History Past Medical History: Hypertension Additional Past Medical History / Comment(s): chronic back pain, leg edema, scoliosis, anxiety depression History of Any Multi-Drug Resistant Organisms: None Reported Past Surgical History: Orthopedic Surgery Additional Past Surgical History / Comment(s): knee sx Past Anesthesia/Blood Transfusion Reactions: No Reported Reaction Past Psychological History: Anxiety, Depression Past Alcohol Use History: None Reported Past Drug Use History: None Reported - Past Family History Mother Family Medical History: No Reported History General Exam - General Exam Comments Initial Comments: GENERAL: Patient is well-developed and well-nourished. Patient is nontoxic and in no acute distress. HEAD: Atraumatic, normocephalic. EYES: Pupils equal round and reactive to light, extraocular movements intact, sclera anicteric, conjunctiva are normal. Eyelids were unremarkable. ENT: TMs normal, nares patent, oropharynx clear without exudates. Moist mucous membranes. NECK: Normal range of motion, supple without lymphadenopathy or JVD. LUNGS: Unlabored respirations. Breath sounds clear to auscultation bilaterally and equal. No wheezes rales or rhonchi. HEART: Regular rate and rhythm without murmurs, rubs or gallops. ABDOMEN: Soft, nontender, normoactive bowel sounds. No guarding, no rebound. No masses appreciated. : Deferred MUSCULOSKELETAL: Normal extremities with adequate strength and normal range of motion, no pitting or edema. No clubbing or cyanosis. NEUROLOGICAL: Patient is alert and oriented x 3. Motor and sensory are also intact. Cranial nerves II through XII grossly intact. Symmetrical smile. Normal speech, normal gait. PSYCH: Normal mood, normal affect. SKIN: Warm, Dry, normal turgor, no rashes or lesions noted. Limitations: no limitations Course Vital Signs 08/20/20 14:16 Temperature 98 F Pulse Rate 53 L Respiratory 16 Rate Blood Pressure 142/71 O2 Sat by Pulse 100 Oximetry Medical Decision Making - Medical Decision Making Patient is a 49-year-old female history of MS, presenting after testing positive for Covid today. She was tested due to her been exposed at work. She is asymptomatic, her exam is unremarkable. She does not qualify for Covid antiviral treatment. She can follow-up with her PCP. She stable for discharge. Case discussed with Dr. Landaverde. Disposition Clinical Impression: COVID-19 Disposition: HOME SELF-CARE Condition: Stable Instructions (If sedation given, give patient instructions): Coronavirus Dis ease 2019 (COVID-19) Additional Instructions: Please return to the Emergency Department if symptoms worsen or any other concerns. Positive Covid test May take Tylenol or Motrin for body aches, headaches. Is patient prescribed a controlled substance at d/c from ED?: No Referrals: Juanis Garvey MD [Primary Care Provider] - 1-2 days
== END 2020-08-20 15:12 | disposition home or self-care (01) ==
LOC: EC 13:39
DX: U07.1 COVID-19 (principal); I10 Essential (primary) hypertension; F41.9 Anxiety disorder, unspecified; F32.9 Major depressive disorder, single episode, unspecified; Z79.899 Other long term (current) drug therapy; Z88.0 Allergy status to penicillin
CPT/HCPCS: 99283

== ENCOUNTER → 2020-10-12 | Outpatient (CLI) | payer OTHER ==
[2020-10-12 22:59] LABS: Basophils # (A) 0.05 X 10*3/uL (0.00-0.10); Basophils % (A) 0.8 %; Eosinophils # (A) 0.24 X 10*3/uL (0.04-0.35); Eosinophils % (A) 3.6 %; HCT 38.8 % (37.2-46.3); HGB 12.6 g/dL (12.0-15.0); Lymphocytes # (A) 2.12 X 10*3/uL (0.90-5.00); MCH 29.9 pg (27.0-32.0); MCHC 32.5 g/dL (32.0-37.0); MCV 91.9 fL (80.0-97.0); Mean Platelet Volume 12.8 fL (9.5-12.2); Monocytes # (A) 0.41 X 10*3/uL (0.20-1.00); Monocytes % (A) 6.2 %; Neutrophils # (A) 3.78 X 10*3/uL (1.80-7.70); Neutrophils % (A) 57.1 %; Platelet Count 175 X 10*3/uL (140-440); RBC 4.22 X 10*6/uL (4.10-5.20); WBC 6.62 X 10*3/uL (4.50-10.00)
[2020-10-13 13:40] LABS: African American GFR (CKD) 98.9 (60.0-200.0); Albumin 4.1 g/dL (3.80-4.90); Albumin/Globulin Ratio 2.16 (1.60-3.17); Anion Gap 10.2 mmol/L (4.00-12.00); BUN/Creat Ratio 8.75 Ratio (12.00-20.00); Calcium 8.8 mg/dL (8.7-10.3); Carbon Dioxide 25.8 mmol/L (21.6-31.8); Globulin 1.9 g/dL (1.6-3.3); Non-African American GFR(CKD) 85.4 (60.0-200.0); Potassium 4.8 mmol/L (3.5-5.5); Total Bilirubin 0.3 mg/dL (0.2-1.2)
== END | disposition home or self-care (01) ==
LOC: LABWHC1 14:47
PROVIDERS: ATTEND Physician Assistant
DX: G35 Multiple sclerosis (principal)
CPT/HCPCS: 36415; 80053; 82306; 85025

== ENCOUNTER → 2021-03-08 | Outpatient (CLI) | payer OTHER ==
--- NOTE | 2021-03-09 08:47 | MM ---
Reason for exam: screening (asymptomatic). Last mammogram was performed 1 year and 10 months ago. History: Patient is postmenopausal and is nulliparous. Physical Findings: A clinical breast exam by your physician is recommended on an annual basis and results should be correlated with mammographic findings. MG 3D Screening Mammo W/Cad Bilateral CC and MLO view(s) were taken. Prior study comparison: May 05, 2019, bilateral MG 3d screening mammo w/cad. The breast tissue is heterogeneously dense. This may lower the sensitivity of mammography. There is no discrete abnormality. No significant changes when compared with prior studies. ASSESSMENT: Negative, BI-RAD 1 RECOMMENDATION: Routine screening mammogram of both breasts in 1 year.
== END | disposition home or self-care (01) ==
LOC: RADMAMWWP 10:57
PROVIDERS: ATTEND Internal Medicine
DX: Z12.31 Encounter for screening mammogram for malignant neoplasm of breast (principal)
CPT/HCPCS: 77063; 77067

== ENCOUNTER 2022-08-08 22:33 | Emergency (ER) | payer OTHER ==
[2022-08-08 22:45] VITALS: BP 94/73; RESP 18; TEMP 98.4
[2022-08-08] MEDS ORDERED: SODIUM CHLORIDE 0.9% 1,000 ML IV STA (23:23)
[2022-08-08 23:42] LABS: Basophils # (A) 0.1 k/uL (0-0.2); Basophils % (A) 1 %; Eosinophils # (A) 0.1 k/uL (0-0.7); Eosinophils % (A) 1 %; HCT 43.6 % (34.0-46.0); HGB 14.5 gm/dL (11.4-16.0); Lymphocytes # (A) 2.9 k/uL (1.0-4.8); Lymphocytes % (A) 39 %; MCH 30.1 pg (25.0-35.0); MCHC 33.3 g/dL (31.0-37.0); MCV 90.2 fL (80.0-100.0); Mean Platelet Volume 9.5; Monocytes # (A) 0.2 k/uL (0-1.0); Monocytes % (A) 3 %; Neutrophils % (A) 54 %; Platelet Count 236 k/uL (150-450); RBC 4.84 m/uL (3.80-5.40); WBC 7.4 k/uL (3.8-10.6)
--- NOTE | 2022-08-08 23:44 | ED ---
General Adult HPI - General Chief complaint: Syncope Stated complaint: Syncope Time Seen by Provider: 08/08/22 23:00 Source: patient, EMS, RN notes reviewed Mode of arrival: EMS Limitations: no limitations - History of Present Illness Initial comments: This 71-year-old female presents emergency Department chief complaint syncopal episode. Patient states she was at her house sharp and very hot flushed feeling and states that she passed out. States that family members called EMS. Patient does admit that she is methamphetamines earlier today. Patient reportedly received Narcan neurologist. Patient denies opiate abuse. Denies chest pain palpitations shortness breath headache dizziness states she's had a normal baseline at this time. - Related Data Home Medications Medication Instructions Recorded Confirmed Butalb/Acetaminophen/Caffeine 1 cap PO Q6H PRN 11/07/16 06/04/19 [Esgic 50-325-40 Capsule] LORazepam [Ativan] 0.5 mg PO HS PRN 11/07/16 06/04/19 Naproxen 500 mg PO BID PRN 11/07/16 06/04/19 risperiDONE [RisperDAL] 2 mg PO HS 11/07/16 06/04/19 Atorvastatin [Lipitor] 20 mg PO DAILY 06/04/19 06/04/19 Chvdmrmkcyhiqv-AN-Pmkiadvxgg 1 tab PO DAILY 06/04/19 06/04/19 [Folbic] HYDROcodone/APAP 7.5-325MG [[place] 1 tab PO BID 06/04/19 06/04/19 7.5-325] Montelukast [Singulair] 10 mg PO DAILY 06/04/19 06/04/19 Multivit/Folic Acid/Vit K1 1 each PO DAILY 06/04/19 06/04/19 [One-A-Day Women's 50 Plus Tab] Propranolol HCl [Propranolol HCl 60 mg PO DAILY 06/04/19 06/04/19 ER] Sertraline [Zoloft] 100 mg PO DAILY 06/04/19 06/04/19 Venlafaxine HCl [Effexor XR] 37.5 mg PO DAILY 06/04/19 06/04/19 risperiDONE 1 mg PO QAM 06/04/19 06/04/19 Allergies Allergy/AdvReac Type Severity Reaction Status Date / Time aspirin Allergy Vomiting Verified 08/08/22 22:45 clarithromycin [From Biaxin] Allergy Vomiting Verified 08/08/22 22:45 omeprazole Allergy Nausea Verified 08/08/22 22:45 Penicillins Allergy Dyspnea Verified 08/08/22 22:45 Review of Systems ROS Statement: Those systems with pertinent positive or pertinent negative responses have been documented in the HPI. ROS Other: All systems not noted in ROS Statement are negative. Past Medical History Past Medical History: Hypertension Additional Past Medical History / Comment(s): chronic back pain, leg edema, scoliosis, anxiety depression History of Any Multi-Drug Resistant Organisms: None Reported Past Surgical History: Orthopedic Surgery Additional Past Surgical History / Comment(s): knee sx Past Anesthesia/Blood Transfusion Reactions: No Reported Reaction Past Psychological History: Anxiety, Depression Past Alcohol Use History: None Reported Past Drug Use History: None Reported - Past Family History Mother Family Medical History: No Reported History General Exam Limitations: no limitations General appearance: alert, in no apparent distress Head exam: Present: atraumatic, normocephalic, normal inspection Eye exam: Present: normal appearance, PERRL, EOMI. Absent: scleral icterus, conjunctival injection, periorbital swelling ENT exam: Present: normal exam, normal oropharynx, mucous membranes moist Neck exam: Present: normal inspection, full ROM. Absent: tenderness, meningismus, lymphadenopathy Respiratory exam: Present: normal lung sounds bilaterally. Absent: respiratory distress, wheezes, rales, rhonchi, stridor Cardiovascular Exam: Present: normal rhythm, tachycardia, normal heart sounds. Absent: systolic murmur, diastolic murmur, rubs, gallop, clicks GI/Abdominal exam: Present: soft, normal bowel sounds. Absent: distended, tenderness, guarding, rebound, rigid Neurological exam: Present: alert, oriented X3, CN II-XII intact, reflexes normal. Absent: motor sensory deficit Course Vital Signs 08/08/22 08/09/22 22:43 00:47 Temperature 98.4 F Pulse Rate 113 H 85 Respiratory 18 Rate Blood Pressure 94/73 O2 Sat by Pulse 100 Oximetry EKG Findings - EKG Comments: EKG Findings:: EKG performed at 22:39 sinus tachycardia rate of 107 AL 135 QRS 80 QT / QTC 347/410 - EKG Results: EKG: interpreted by [facility] Medical Decision Making - Medical Decision Making Was pt. sent in by a medical professional or institution (KEELEY Bass, EXTERIOR DOOR INSTALLER, urgent care, hospital, or group home...) When possible be specific @ -No Did you speak to anyone other than the patient for history (EMS, parent, family, police, friend...)? What history was obtained from this source @ -No Did you review nursing and triage notes (agree or disagree)? Why? @ -I reviewed and agree with nursing and triage notes Were old charts reviewed (outside hosp., previous admission, EMS record, old EKG, old radiological studies, urgent care reports/EKG's, group home records)? Report findings @ -No old charts were reviewed Differential Diagnosis (chest pain, altered mental status, abdominal pain women, abdominal pain men, vaginal bleeding, weakness, fever, dyspnea, syncope, headache, dizziness, GI bleed, back pain, seizure, CVA, palpatations, mental health, musculoskeletal)? @ -Differential Syncope: Valvular disease, hypertrophic cardiomyopathy, pulmonary embolism, tamponade, tachycardia, bradycardia, VA, hypovolemia, hemorrhage, dissection, anemia, intracranial hemorrhage, seizure, hypoglycemia, carbon monoxide poisoning, this is not meant to be an all-inclusive list. EKG interpreted by me (3pts min.). @ -As above X-rays interpreted by me (1pt min.). @ -Patient refused CT interpreted by me (1pt min.). @ -None done U/S interpreted by me (1pt. min.). @ -None done What testing was considered but not performed or refused? (CT, X-rays, U/S, labs)? Why? @ -None What meds were considered but not given or refused? Why? @ -None Did you discuss the management of the patient with other professionals (professionals i.e. KEELEY Bass, EXTERIOR DOOR INSTALLER, lab, RT, psych nurse, mental health social worker, exercise equipment specialist, teacher, air antisubmarine officer, pillowcase sewer)? Give summary @ -No Was smoking cessation discussed for >3mins.? @ -No Was critical care preformed (if so, how long)? @ -No Were there social determinants of health that impacted care today? How? (Homelessness, low income, unemployed, alcoholism, drug addiction, tr ansportation, low edu. Level, literacy, decrease access to med. care, [place] [facility], rehab)? @ -No Was there de-escalation of care discussed even if they declined (Discuss DNR or withdrawal of care, Hospice)? DNR status @ -No What co-morbidities impacted this encounter? (DM, HTN, Smoking, COPD, CAD, Cancer, CVA, ARF, Chemo, Hep., AIDS, mental health diagnosis, sleep apnea, morbid obesity)? @ -Drug abuse Was patient admitted / discharged? Hospital course, mention meds given and route, prescriptions, significant lab abnormalities, going to OR and other pertinent info. @ -Discharge patient reportedly had a syncopal episode versus possible drug overdose. Patient is stable has no current complaints. Patient was discharged in stable condition return parameters were discussed. Undiagnosed new problem with uncertain prognosis? @ -No Drug Therapy requiring intensive monitoring for toxicity (Heparin, Nitro, Insul in, Cardizem)? @ -No Were any procedures done? @ -No Diagnosis/symptom? @ -Syncope Acute, or Chronic, or Acute on Chronic? @ -Acute Uncomplicated (without systemic symptoms) or Complicated (systemic symptoms)? @ -Uncomplicated Side effects of treatment? @ -No Exacerbation, Progression, or Severe Exacerbation? @ -No Poses a threat to life or bodily function? How? (Chest pain, [place], VA, pneumonia, PE, COPD, DKA, ARF, appy, cholecystitis, CVA, Diverticulitis, Homicidal, Suicidal, threat to staff... and all critical care pts) @ -No - Lab Data Result diagrams: 08/08/22 22:44 08/08/22 22:44 Lab Results 08/08/22 08/08/22 08/08/22 Range/Units 22:44 22:44 23:33 WBC 7.4 (3.8-10.6) k/uL RBC 4.84 (3.80-5.40) m/uL Hgb 14.5 (11.4-16.0) gm/dL Hct 43.6 (34.0-46.0) % MCV 90.2 (80.0-100.0) fL MCH 30.1 (25.0-35.0) pg MCHC 33.3 (31.0-37.0) g/dL RDW 13.0 (11.5-15.5) % Plt Count 236 (150-450) k/uL MPV 9.5 Neutrophils % 54 % Lymphocytes % 39 % Monocytes % 3 % Eosinophils % 1 % Basophils % 1 % Neutrophils # 4.0 (1.3-7.7) k/uL Lymphocytes # 2.9 (1.0-4.8) k/uL Monocytes # 0.2 (0-1.0) k/uL Eosinophils # 0.1 (0-0.7) k/uL Basophils # 0.1 (0-0.2) k/uL PT 10.9 (9.0-12.0) sec INR 1.0 (<1.2) APTT 18.9 L (22.0-30.0) sec Sodium 137 (137-145) mmol/L Potassium 3.4 L (3.5-5.1) mmol/L Chloride 105 (98-107) mmol/L Carbon Dioxide 22 (22-30) mmol/L Anion Gap 10 mmol/L BUN 16 (7-17) mg/dL Creatinine 0.78 (0.52-1.04) mg/dL Est GFR (CKD-EPI)AfAm >90 (>60 ml/min/1.73 sqM) Est GFR (CKD-EPI)NonAf 87 (>60 ml/min/1.73 sqM) Glucose 167 H (74-99) mg/dL Calcium 8.8 (8.4-10.2) mg/dL Magnesium 1.7 (1.6-2.3) mg/dL Total Bilirubin 0.5 (0.2-1.3) mg/dL AST 26 (14-36) U/L ALT 26 (4-34) U/L Alkaline Phosphatase 79 (38-126) U/L Troponin I (0.000-0.034) ng/mL Total Protein 6.8 (6.3-8.2) g/dL Albumin 4.1 (3.5-5.0) g/dL Urine Opiates Screen (NotDetected) Ur Oxycodone Screen (NotDetected) Urine Methadone Screen (NotDetected) Ur Propoxyphene Screen (NotDetected) Ur Barbiturates Screen (NotDetected) U Tricyclic Antidepress (NotDetected) Ur Phencyclidine Scrn (NotDetected) Ur Amphetamines Screen (NotDetected) U Methamphetamines Scrn (NotDetected) U Benzodiazepines Scrn (NotDetected) Urine Cocaine Screen (NotDetected) U Marijuana (THC) Screen (NotDetected) 08/08/22 08/09/22 Range/Units 23:33 00:49 WBC (3.8-10.6) k/uL RBC (3.80-5.40) m/uL Hgb (11.4-16.0) gm/dL Hct (34.0-46.0) % MCV (80.0-100.0) fL MCH (25.0-35.0) pg MCHC (31.0-37.0) g/dL RDW (11.5-15.5) % Plt Count (150-450) k/uL MPV Neutrophils % % Lymphocytes % % Monocytes % % Eosinophils % % Basophils % % Neutrophils # (1.3-7.7) k/uL Lymphocytes # (1.0-4.8) k/uL Monocytes # (0-1.0) k/uL Eosinophils # (0-0.7) k/uL Basophils # (0-0.2) k/uL PT (9.0-12.0) sec INR (<1.2) APTT (22.0-30.0) sec Sodium (137-145) mmol/L Potassium (3.5-5.1) mmol/L Chloride (98-107) mmol/L Carbon Dioxide (22-30) mmol/L Anion Gap mmol/L BUN (7-17) mg/dL Creatinine (0.52-1.04) mg/dL Est GFR (CKD-EPI)AfAm (>60 ml/min/1.73 sqM) Est GFR (CKD-EPI)NonAf (>60 ml/min/1.73 sqM) Glucose (74-99) mg/dL Calcium (8.4-10.2) mg/dL Magnesium (1.6-2.3) mg/dL Total Bilirubin (0.2-1.3) mg/dL AST (14-36) U/L ALT (4-34) U/L Alkaline Phosphatase (38-126) U/L Troponin I <0.012 (0.000-0.034) ng/mL Total Protein (6.3-8.2) g/dL Albumin (3.5-5.0) g/dL Urine Opiates Screen Not Detected (NotDetected) Ur Oxycodone Screen Not Detected (NotDetected) Urine Methadone Screen Not Detected (NotDetected) Ur Propoxyphene Screen Not Detected (NotDetected) Ur Barbiturates Screen Not Detected (NotDetected) U Tricyclic Antidepress Not Detected (NotDetected) Ur Phencyclidine Scrn Not Detected (NotDetected) Ur Amphetamines Screen Detected H (NotDetected) U Methamphetamines Scrn Detected H (NotDetected) U Benzodiazepines Scrn Not Detected (NotDetected) Urine Cocaine Screen Not Detected (NotDetected) U Marijuana (THC) Screen Detected H (NotDetected) Disposition Clinical Impression: Syncope Disposition: HOME SELF-CARE Condition: Stable Instructions (If sedation given, give patient instructions): Syncope (ED) Additional Instructions: Please return to the Emergency Department if symptoms worsen or any other concerns. Is patient prescribed a controlled substance at d/c from ED?: No Referrals: Gracie Ramos MD [Primary Care Provider] - 1-2 days Time of Disposition: 01:33
[2022-08-08 23:52] LABS: ALT 26 U/L (4-34); AST 26 U/L (14-36); African American GFR (CKD) >90 (>60 ml/min/1.73 sqM); Albumin 4.1 g/dL (3.5-5.0); Alkaline Phosphatase 79 U/L (38-126); Anion Gap 10 mmol/L; Blood Urea Nitrogen 16 mg/dL (7-17); Calcium 8.8 mg/dL (8.4-10.2); Carbon Dioxide 22 mmol/L (22-30); Chloride 105 mmol/L (98-107); Glucose 167 mg/dL (74-99); Magnesium 1.7 mg/dL (1.6-2.3); Non-African American GFR(CKD) 87 (>60 ml/min/1.73 sqM); Potassium 3.4 mmol/L (3.5-5.1); Sodium 137 mmol/L (137-145); Total Bilirubin 0.5 mg/dL (0.2-1.3); Total Protein 6.8 g/dL (6.3-8.2)
[2022-08-09 00:11] LABS: Prothrombin Time 10.9 sec (9.0-12.0)
[2022-08-09 00:20] LABS: Partial Thromboplastin Time 18.9 sec (22.0-30.0)
[2022-08-09 00:47] VITALS: PULSE 85
[2022-08-09 01:13] LABS: Amphetamine Screen,Urine Detected (NotDetected); Barbiturate Screen,Urine Not Detected (NotDetected); Benzodiazepines Screen,Urine Not Detected (NotDetected); Cocaine Screen,Urine Not Detected (NotDetected); Methadone Screen, Urine Not Detected (NotDetected); Opiate Screen,Urine Not Detected (NotDetected); Oxycodone Screen, Urine Not Detected (NotDetected); Phencyclidine Screen,Urine Not Detected (NotDetected); Tricyclic Antidepressant,Urine Not Detected (NotDetected); Urn Cannabinoid Scrn Detected (NotDetected)
== END 2022-08-09 01:39 | disposition home or self-care (01) ==
LOC: SUPCPDRO 22:33 → EC 22:33
DX: R55 Syncope and collapse (principal); I10 Essential (primary) hypertension; F32.A Depression, unspecified; F41.9 Anxiety disorder, unspecified; Z88.0 Allergy status to penicillin; Z88.1 Allergy status to other antibiotic agents; Z88.6 Allergy status to analgesic agent; Z88.8 Allergy status to other drugs, medicaments and biological substances; Z79.899 Other long term (current) drug therapy
CPT/HCPCS: 36415; 80053; 80306; 83735; 84484; 85025; 85610; 85730; 93005; 96360; 99285